=== PATIENT | female | born 1970 | race Caucasian/White ===

== ENCOUNTER 2017-10-11 23:58 | Emergency (ER) | payer OTHER ==
[~2017-10-11] VITALS: Ht 185.4 cm; Wt 127.0 kg
[~2017-10-11 23:58] MED LIST: LIPITOR20 MG; MICARDIS20 MG; NABUMETONE750 MG PO; NOVOLIN N100 UNITS/; TRIPLE ANTIBIOT15 GM TP; VERAPAMIL ER200 MG
[2017-10-12] MEDS ORDERED: FORTAMET1000 MG (00:05)
[2017-10-12] MEDS ORDERED: LANTUS SOL100 UNIT/1 (00:06)
[2017-10-12] MEDS ORDERED: ATIVAN0.5 M1 (00:06)
[2017-10-12] MEDS ORDERED: LEXAPRO20 MG (00:07)
[2017-10-12] MEDS ORDERED: ATORVASTATIN CA10 MG (00:10)
[2017-10-12] MEDS ORDERED: KETO10TA2 PO (03:59)
[2017-10-12] MEDS ORDERED: NORFLEX100MG PO (03:59)
== END 2017-10-12 04:03 | disposition home or self-care (01) ==
LOC: ER 23:58
DX: M54.2 Cervicalgia (principal)